=== PATIENT | male | born 1970 | race Caucasian/White ===

== ENCOUNTER → 2021-03-14 | Day surgery (SDC) | payer OTHER ==
[~2021-03-14] MED LIST: ACYCLOVIR 400400 MG PO; BRINTELLIX20 MG PO; DEPAKOTE 250MG250 M1 PO; DEPAKOTE500 MG PO; METFORMIN HCL500 M3 PO; NAPROSYN500 M1 PO; NYSTATIN 100,0015 G1 TOP
--- NOTE | ~2021-03-14 | PROC ---
[address] [address] PROCEDURE REPORT Name: MARK MASON Room: [facility]#: [id number] Admission: 03/14/21 Attend Phys: Gilles Machuca DO Discharge: Date of : 72 Report #: [id number] THIS REPORT FOR: cc: Jo Trent Anna S. DO [facility],Medical Records Staff ~ For GI report, please see the Provation report in [employer] content. By: [id number] Records Staff RAJENDRA /CHRIS
== END | disposition home or self-care (01) ==
LOC: M.SUR 06:19
PROVIDERS: ATTEND Internal Medicine Gastroenterology
DX: K92.1 Melena (principal); R19.4 Change in bowel habit; K52.9 Noninfective gastroenteritis and colitis, unspecified; K63.3 Ulcer of intestine; K64.4 Residual hemorrhoidal skin tags; K63.89 Other specified diseases of intestine; K21.00 Gastro-esophageal reflux disease with esophagitis, without bleeding; Z79.899 Other long term (current) drug therapy; Z98.890 Other specified postprocedural states

== ENCOUNTER → 2021-04-10 | Outpatient (CLI) | payer OTHER ==
[2021-04-10 10:25] LABS: CREATININE 0.9 mg/dL (0.6-1.3)
== END ==
LOC: M.CT 09:27
PROVIDERS: ATTEND Internal Medicine Gastroenterology
DX: K52.9 Noninfective gastroenteritis and colitis, unspecified (principal); R92.1 Mammographic calcification found on diagnostic imaging of breast; R10.9 Unspecified abdominal pain; Z79.899 Other long term (current) drug therapy